=== PATIENT | male | born 1965 | race Caucasian/White ===

== ENCOUNTER 2023-07-10 22:25 | Inpatient (IN) | payer OTHER ==
[~2023-07-10] VITALS: Ht 162.6 cm; Wt 78.0 kg
[2023-07-10] MEDS ORDERED: IPRATROPIUM BROMIDE (0.02%) 0.5MG/2.5ML NEB HHN STA (22:32)
[2023-07-10] MEDS ORDERED: METHYLPREDNISOLONE SOD SUCC 125MG/2ML (ACT-O-VIAL) IV STA (22:32)
[2023-07-10] MEDS ORDERED: ALBUTEROL (0.083%) 2.5MG/3ML NEB HHN STA (22:32)
[2023-07-10] MEDS ORDERED: SODIUM CHLORIDE 0.9% 1,000 ML IV ONE (22:45)
[2023-07-10 22:49] LABS: BASOPHILS % 0.6 % (0.0-2.0); EOSINOPHILS % 0.9 % (0.0-5.0); HEMATOCRIT. 40.1 % (42.0-52.0); HEMOGLOBIN. 12.7 g/dL (14.0-18.0); LYMPHOCYTES % 7.1 % (20.0-50.0); MEAN CORPUSCULAR HEMOGLOBIN 26.2 pg (28.0-32.0); MEAN CORPUSCULAR HGB CONC 31.8 g/dL (31.0-37.0); MEAN CORPUSCULAR VOLUME 82.6 fL (80.0-94.0); MEAN PLATELET VOLUME 8.2 fl (7.4-10.4); MONOCYTES % 8.7 % (2.0-8.0); NEUTROPHILS % 82.7 % (40.0-76.0); PLATELET 219 x1000/uL (130-400); RED BLOOD CELL COUNT 4.85 mill/uL (4.7-6.1); RED CELL DISTRIBUTION WIDTH 14.6 % (11.6-14.6); WHITE BLOOD COUNT 14.5 x1000/uL (4.5-11.0)
[2023-07-10 22:55] LABS: PROTHROMBIN TIME 10.9 sec (9.6-11.0)
[2023-07-10 23:02] LABS: ALANINE AMINOTRANSFERASE 36 IU/L (10-49); ALBUMIN 4.2 g/dL (3.2-4.8); ASPARTATE AMINOTRANSFERASE 69 IU/L (<34); BILIRUBIN TOTAL 0.9 mg/dL (0.1-1.0); CALCIUM 8.7 mg/dL (8.7-10.4); CARBON DIOXIDE 16 mEq/L (21-32); CHLORIDE 107 mEq/L (98-107); CREATININE 1.3 mg/dL (0.6-1.3); GLUCOSE 138 mg/dL (70-105); POTASSIUM 4.2 mEq/L (3.5-5.1); PROTEIN TOTAL 7.4 g/dL (6.0-8.3); SODIUM 138 mEq/L (136-145); TROPONIN I HIGH SENSITIVITY 25 ng/L (3.0-53); UREA NITROGEN BLOOD 28 mg/dL (9-23)
[2023-07-10 23:07] LABS: ETHANOL BLOOD < 10 mg/dL (<10); LACTIC ACID 2.4 mmol/L (0.4-2.0)
[2023-07-10 23:58] VITALS: RESP 28
[2023-07-11 00:07] LABS: BG BASE EXCESS -2.5 mmol/L (-2.0-2.0); BG CARBOXYHEMOGLOBIN 0.4 % (0.5-1.5); BG DEOXYHEMOGLOBIN 1.3 % (0.0-5.0); BG FRACTION INSPIRED OXYGEN 50; BG HCO3 ACT 20.3 mmol/L (22.0-26.0); BG METHEMOGLOBIN 0.3 % (0.0-1.5); BG OXYGEN SATURATION 98.7 % (92.0-98.5); BG PCO2 29.8 mmHg (35.0-45.0); BG PH 7.452 (7.350-7.450); BG PO2 158.9 mmHg (75.0-100.0); BG SAMPLE SITE LEFT RADIAL; BG TOTAL HEMOGLOBIN 13.5 g/dL (12.0-18.0); BG VENT MODE MASK - BIPAP
[2023-07-11] MEDS ORDERED: TAZOBACTAM IV NR (00:30)
[2023-07-11] MEDS ORDERED: VANCOMYCIN 1G PREMIX 200 ML IV NR (00:30)
[2023-07-11] MEDS ORDERED: PIPERACILLIN IV NR (00:30)
[2023-07-11 04:55] VITALS: PULSE 109; RESP 22; O2SAT 96
[2023-07-11] MEDS ORDERED: ALBUTEROL (0.5%) 2.5MG/0.5ML NEB HHN ONE (05:30)
[2023-07-11 08:00] VITALS: RESP 17
[2023-07-11] MEDS ORDERED: CLONIDINE 0.1MG TABLET PO PRN (11:15)
[2023-07-11] MEDS ORDERED: ONDANSETRON HCL 4MG/2ML INJ IV PRN (11:15)
[2023-07-11] MEDS ORDERED: IPRATROPIUM/ALBUTEROL 0.5-3(2.5)MG/3ML NEB HHN PRN (11:15)
[2023-07-11] MEDS ORDERED: MAGNESIUM/ALUMINUM HYDROXIDE/SIMETHICONE 30ML UDC PO PRN (11:15)
[2023-07-11] MEDS ORDERED: CEFTAZIDIME PENTAHYDRATE 2 G in DEXT 5% WATER 100 ML IV SCH (11:30)
[2023-07-11] MEDS ORDERED: AZITHROMYCIN 500MG/250ML 250 ML IV SCH (11:30)
[2023-07-11] MEDS ORDERED: LEVOFLOXACIN 750MG PREMIX 150 ML IV NR (12:45)
[2023-07-11] MEDS ORDERED: NON FORMULARY PATIENT HOME MED XX SCH (17:30)
[2023-07-11] MEDS ORDERED: MYCOPHENOLATE MOFETIL 500MG TABLET PO SCH (18:00)
[2023-07-11 20:00] VITALS: BP 126/76; PULSE 78; RESP 23; TEMP 98.8
[2023-07-11] MEDS: FAMOTIDINE 20MG TABLET PO SCH (20:49)
[2023-07-11] MEDS ORDERED: NON FORMULARY PATIENT HOME MED XX PRN (22:00)
[2023-07-11] MEDS: IPRATROPIUM/ALBUTEROL 0.5-3(2.5)MG/3ML NEB HHN SCH (22:06)
[2023-07-11] MEDS: BUDESONIDE 0.5MG/2ML NEB HHN SCH (22:06)
[2023-07-11 22:07] VITALS: PULSE 89; RESP 24; O2SAT 96
[2023-07-11] MEDS: PREDNISONE 5MG TABLET PO SCH (22:08)
[2023-07-11] MEDS: GUAIFENESIN 200MG/10ML SUGAR FREE UDC PO PRN (22:10)
[2023-07-11] MEDS: MELATONIN 3MG TABLET PO PRN (22:15)
[2023-07-11 23:20] VITALS: BP 126/76; PULSE 78; RESP 23; TEMP 98.8
[2023-07-12] VITALS (11 sets, daily range): BP systolic 105–135; BP diastolic 61–82; PULSE 76–114; RESP 25–51; TEMP 97.4–98.5; O2SAT 86
[2023-07-12] MEDS: ACETYLCYSTEINE 200MG/ML 20% VIAL 4ML INH SCH ×3 (01:51→13:30)
[2023-07-12] MEDS: IPRATROPIUM/ALBUTEROL 0.5-3(2.5)MG/3ML NEB HHN SCH ×4 (01:51→20:28)
[2023-07-12] MEDS: GUAIFENESIN 200MG/10ML SUGAR FREE UDC PO PRN (04:59)
[2023-07-12 07:40] LABS: ALANINE AMINOTRANSFERASE 34 IU/L (10-49); ALBUMIN 3.8 g/dL (3.2-4.8); ASPARTATE AMINOTRANSFERASE 39 IU/L (<34); BILIRUBIN TOTAL 0.5 mg/dL (0.1-1.0); CALCIUM 8.7 mg/dL (8.7-10.4); CARBON DIOXIDE 20 mEq/L (21-32); CHLORIDE 106 mEq/L (98-107); CHOLESTEROL 173 mg/dL (<200); CREATININE 0.9 mg/dL (0.6-1.3); GLUCOSE 121 mg/dL (70-105); HDL CHOLESTEROL 47 mg/dL (>55); LDL CHOLESTEROL 101 mg/dL (5-100); POTASSIUM 4.5 mEq/L (3.5-5.1); PROTEIN TOTAL 6.7 g/dL (6.0-8.3); SODIUM 136 mEq/L (136-145); T4 FREE 1.19 ng/dL (0.89-1.76); THYROID STIMULATING HORMONE 1.36 uIU/mL (0.55-4.78); TRIGLYCERIDE 105 mg/dL (0-150); UREA NITROGEN BLOOD 22 mg/dL (9-23)
[2023-07-12 08:15] LABS: HEPATITIS B SURFACE ANTIGEN NEGATIVE (Negative); HEPATITIS C AB NON REACTIVE (Neg) (Negative)
[2023-07-12 08:32] LABS: BASOPHILS % 0.1 % (0.0-2.0); EOSINOPHILS % 0.1 % (0.0-5.0); HEMATOCRIT. 36.8 % (42.0-52.0); HEMOGLOBIN. 12.1 g/dL (14.0-18.0); LYMPHOCYTES % 7.4 % (20.0-50.0); MEAN CORPUSCULAR HEMOGLOBIN 26.7 pg (28.0-32.0); MEAN CORPUSCULAR HGB CONC 32.8 g/dL (31.0-37.0); MEAN CORPUSCULAR VOLUME 81.3 fL (80.0-94.0); MEAN PLATELET VOLUME 8.7 fl (7.4-10.4); MONOCYTES % 8.2 % (2.0-8.0); NEUTROPHILS % 84.2 % (40.0-76.0); PLATELET 190 x1000/uL (130-400); RED BLOOD CELL COUNT 4.53 mill/uL (4.7-6.1); RED CELL DISTRIBUTION WIDTH 14.5 % (11.6-14.6); WHITE BLOOD COUNT 12.7 x1000/uL (4.5-11.0)
[2023-07-12] MEDS: PREDNISONE 5MG TABLET PO SCH (09:09)
[2023-07-12] MEDS: BUDESONIDE 0.5MG/2ML NEB HHN SCH ×2 (09:40→20:28)
[2023-07-12 09:56] LABS: CLARITY URINE CLEAR (CLEAR); COLOR URINE YELLOW (YELLOW); GLUCOSE URINE NEGATIVE (NEGATIVE); KETONES URINE NEGATIVE (NEGATIVE); LEUKOCYTE ESTERASE URINE NEGATIVE (NEGATIVE); NITRITE URINE NEGATIVE (NEGATIVE); OCCULT BLOOD URINE NEGATIVE (NEGATIVE); PH URINE 5.5 (4.5-8.0); PROTEIN URINE TRACE (NEGATIVE); SPECIFIC GRAVITY URINE 1.024 (1.005-1.030); UROBILINOGEN URINE 0.2 E.U./dL (0.2-1.0)
[2023-07-12] MEDS ORDERED: METHYLPREDNISOLONE SOD SUCC 40MG/ML (ACT-O-VIAL) IV SCH ×2 (10:30→14:00)
[2023-07-12 11:36] LABS: BG CARBOXYHEMOGLOBIN 0.8 % (0.5-1.5); BG DEOXYHEMOGLOBIN 10.1 % (0.0-5.0); BG FRACTION INSPIRED OXYGEN 100; BG METHEMOGLOBIN 0.3 % (0.0-1.5); BG OXYGEN SATURATION 89.8 % (92.0-98.5); BG OXYHEMOGLOBIN 88.8 % (94.0-97.0); BG PCO2 31.9 mmHg (35.0-45.0); BG PH 7.457 (7.350-7.450); BG PO2 55.6 mmHg (75.0-100.0); BG SAMPLE SITE LEFT BRACHIAL; BG TOTAL HEMOGLOBIN 13.6 g/dL (12.0-18.0); BG VENT MODE HIGH FLOW
[2023-07-12 11:55] LABS: HYALINE CASTS URINE 0-5 /lpf; MUCUS URINE 1+ /lpf (NONE/TRACE); SQUAMOUS EPITHELIAL CELL URINE FEW /lpf (RARE/1+)
[2023-07-12 11:56] LABS: BACTERIA URINE NONE SEEN; RBC URINE NONE SEEN /hpf (0-2); WBC URINE 0-2 /hpf (0-2)
[2023-07-12] MEDS ORDERED: VANCOMYCIN 1G PREMIX 200 ML IV SCH ×2 (13:00→22:00)
[2023-07-12] MEDS: PIPERACILLIN/TAZOBACTAM 3.375 G in DEXTROSE 5% WATER 50 ML IV SCH ×2 (13:00→22:48)
[2023-07-12 13:20] LABS: *AMPHETAMINES SCREEN URINE NEGATIVE (NEGATIVE); *BARBITURATES SCREEN URINE NEGATIVE (NEGATIVE); *BENZODIAZEPINES SCREEN URINE NEGATIVE (NEGATIVE); *COCAINE SCREEN URINE NEGATIVE (NEGATIVE); ECSTASY MDMA SCREEN URINE NEGATIVE (NEGATIVE); METHADONE URINE SCREEN Neg (NEGATIVE); OPIATES URINE SCREEN NEGATIVE (NEGATIVE); PHENCYCLIDINE URINE SCREEN NEGATIVE (NEGATIVE)
[2023-07-12] MEDS: MELATONIN 3MG TABLET PO PRN (16:42)
[2023-07-12] MEDS: ENOXAPARIN 40MG/0.4ML SYR SUBCUT SCH (16:42)
[2023-07-12 17:09] LABS: BG BASE EXCESS -3.2 mmol/L (-2.0-2.0); BG CARBOXYHEMOGLOBIN 0.6 % (0.5-1.5); BG DEOXYHEMOGLOBIN 0.6 % (0.0-5.0); BG HCO3 ACT 20.3 mmol/L (22.0-26.0); BG METHEMOGLOBIN 0.4 % (0.0-1.5); BG OXYGEN SATURATION 99.4 % (92.0-98.5); BG OXYHEMOGLOBIN 98.4 % (94.0-97.0); BG PCO2 32.2 mmHg (35.0-45.0); BG PH 7.418 (7.350-7.450); BG PO2 194.2 mmHg (75.0-100.0); BG SAMPLE SITE RIGHT RADIAL; BG TOTAL HEMOGLOBIN 13.6 g/dL (12.0-18.0); BG VENT MODE MASK - BIPAP
[2023-07-12] MEDS ORDERED: FUROSEMIDE 20MG/2ML VIAL IVP NR (18:15)
[2023-07-12] MEDS: METHYLPREDNISOLONE SOD SUCC 125MG/2ML (ACT-O-VIAL) IV SCH (18:45)
[2023-07-12 18:52] LABS: TROPONIN I HIGH SENSITIVITY 20 ng/L (3.0-53)
[2023-07-12] MEDS: FAMOTIDINE 20MG TABLET PO SCH (22:03)
[2023-07-13] VITALS (15 sets, daily range): BP systolic 116–148; BP diastolic 73–119; PULSE 48–93; RESP 22–42; TEMP 97.2–98.2; O2SAT 99
[2023-07-13] MEDS: ACETYLCYSTEINE 200MG/ML 20% VIAL 4ML INH SCH ×3 (01:11→14:15)
[2023-07-13] MEDS: IPRATROPIUM/ALBUTEROL 0.5-3(2.5)MG/3ML NEB HHN SCH ×4 (01:11→20:43)
[2023-07-13] MEDS: METHYLPREDNISOLONE SOD SUCC 125MG/2ML (ACT-O-VIAL) IV SCH ×5 (01:27→23:23)
[2023-07-13] MEDS: PIPERACILLIN/TAZOBACTAM 3.375 G in DEXTROSE 5% WATER 50 ML IV SCH ×3 (06:18→21:53)
[2023-07-13 07:25] LABS: BASOPHILS % 0.1 % (0.0-2.0); HEMATOCRIT. 37.2 % (42.0-52.0); HEMOGLOBIN. 12.2 g/dL (14.0-18.0); LYMPHOCYTES % 7.7 % (20.0-50.0); MEAN CORPUSCULAR HEMOGLOBIN 26.6 pg (28.0-32.0); MEAN CORPUSCULAR HGB CONC 32.7 g/dL (31.0-37.0); MEAN CORPUSCULAR VOLUME 81.2 fL (80.0-94.0); MEAN PLATELET VOLUME 8.4 fl (7.4-10.4); MONOCYTES % 4.8 % (2.0-8.0); NEUTROPHILS % 87.4 % (40.0-76.0); PLATELET 203 x1000/uL (130-400); RED BLOOD CELL COUNT 4.57 mill/uL (4.7-6.1); RED CELL DISTRIBUTION WIDTH 14.1 % (11.6-14.6); WHITE BLOOD COUNT 9.1 x1000/uL (4.5-11.0)
[2023-07-13 08:08] LABS: CALCIUM 9.1 mg/dL (8.7-10.4); CARBON DIOXIDE 25 mEq/L (21-32); CHLORIDE 103 mEq/L (98-107); CREATININE 1.1 mg/dL (0.6-1.3); GLUCOSE 174 mg/dL (70-105); POTASSIUM 4.4 mEq/L (3.5-5.1); SODIUM 137 mEq/L (136-145); UREA NITROGEN BLOOD 27 mg/dL (9-23)
[2023-07-13] MEDS: BUDESONIDE 0.5MG/2ML NEB HHN SCH ×2 (08:15→20:44)
[2023-07-13 10:55] LABS: BG BASE EXCESS -0.1 mmol/L (-2.0-2.0); BG CARBOXYHEMOGLOBIN 0.1 % (0.5-1.5); BG DEOXYHEMOGLOBIN 0.7 % (0.0-5.0); BG FRACTION INSPIRED OXYGEN 100; BG HCO3 ACT 23.9 mmol/L (22.0-26.0); BG METHEMOGLOBIN 0.3 % (0.0-1.5); BG OXYGEN SATURATION 99.3 % (92.0-98.5); BG OXYHEMOGLOBIN 98.9 % (94.0-97.0); BG PCO2 36.9 mmHg (35.0-45.0); BG PO2 214.2 mmHg (75.0-100.0); BG SAMPLE SITE RIGHT RADIAL; BG TOTAL HEMOGLOBIN 13.1 g/dL (12.0-18.0); BG VENT MODE MASK - BIPAP
[2023-07-13] MEDS: VANCOMYCIN 1G PREMIX 200 ML IV SCH ×2 (12:12→20:29)
[2023-07-13] MEDS: ENOXAPARIN 40MG/0.4ML SYR SUBCUT SCH (17:24)
[2023-07-13] MEDS ORDERED: DEXT 5%/0.45% NACL 500ML 500 ML IV ONE (18:00)
[2023-07-13] MEDS: FAMOTIDINE 20MG TABLET PO SCH (20:32)
[2023-07-14] VITALS (19 sets, daily range): BP systolic 106–137; BP diastolic 66–95; PULSE 47–114; RESP 23–40; TEMP 97–97.9
[2023-07-14] MEDS: IPRATROPIUM/ALBUTEROL 0.5-3(2.5)MG/3ML NEB HHN SCH ×4 (01:18→21:18)
[2023-07-14] MEDS: ACETYLCYSTEINE 200MG/ML 20% VIAL 4ML INH SCH ×3 (01:18→14:49)
[2023-07-14] MEDS: PIPERACILLIN/TAZOBACTAM 3.375 G in DEXTROSE 5% WATER 50 ML IV SCH ×3 (05:09→20:45)
[2023-07-14] MEDS: METHYLPREDNISOLONE SOD SUCC 125MG/2ML (ACT-O-VIAL) IV SCH ×3 (05:11→17:53)
[2023-07-14 05:48] LABS: HEMATOCRIT. 38.7 % (42.0-52.0); HEMOGLOBIN. 12.6 g/dL (14.0-18.0); MEAN CORPUSCULAR HEMOGLOBIN 26.6 pg (28.0-32.0); MEAN CORPUSCULAR HGB CONC 32.5 g/dL (31.0-37.0); MEAN PLATELET VOLUME 8.6 fl (7.4-10.4); PLATELET 209 x1000/uL (130-400); RED BLOOD CELL COUNT 4.73 mill/uL (4.7-6.1); RED CELL DISTRIBUTION WIDTH 14.6 % (11.6-14.6); WHITE BLOOD COUNT 12.8 x1000/uL (4.5-11.0)
[2023-07-14 06:32] LABS: CARBON DIOXIDE 21 mEq/L (21-32); CHLORIDE 105 mEq/L (98-107); GLUCOSE 153 mg/dL (70-105); POTASSIUM 5.1 mEq/L (3.5-5.1); SODIUM 135 mEq/L (136-145); UREA NITROGEN BLOOD 29 mg/dL (9-23)
[2023-07-14 06:54] LABS: DIFFERENTIAL COMMENT 1
[2023-07-14] MEDS: BUDESONIDE 0.5MG/2ML NEB HHN SCH ×2 (08:33→20:44)
[2023-07-14] MEDS: DEXT 5%/0.9% NACL 1,000 ML IV SCH ×2 (09:54→22:39)
[2023-07-14] MEDS: VANCOMYCIN 1G PREMIX 200 ML IV SCH ×2 (09:58→20:44)
[2023-07-14] MEDS ORDERED: IOHEXOL-350 100 ML BOTTLE ONE (14:43)
[2023-07-14 17:47] LABS: BG BASE EXCESS -1.2 mmol/L (-2.0-2.0); BG CARBOXYHEMOGLOBIN 0.1 % (0.5-1.5); BG DEOXYHEMOGLOBIN 3.8 % (0.0-5.0); BG FRACTION INSPIRED OXYGEN 60; BG HCO3 ACT 22.8 mmol/L (22.0-26.0); BG METHEMOGLOBIN 0.3 % (0.0-1.5); BG OXYGEN SATURATION 96.2 % (92.0-98.5); BG OXYHEMOGLOBIN 95.8 % (94.0-97.0); BG PCO2 35.9 mmHg (35.0-45.0); BG PO2 85.8 mmHg (75.0-100.0); BG SAMPLE SITE RIGHT BRACHIAL; BG TOTAL HEMOGLOBIN 13.8 g/dL (12.0-18.0); BG TOTAL RESPIRATORY RATE 26 b/min; BG VENT MODE MASK - BIPAP
[2023-07-14] MEDS: ENOXAPARIN 40MG/0.4ML SYR SUBCUT SCH (17:54)
[2023-07-14] MEDS: FAMOTIDINE 20MG TABLET PO SCH (20:45)
[2023-07-15] VITALS (17 sets, daily range): BP systolic 122–151; BP diastolic 77–87; PULSE 50–74; RESP 16–38; TEMP 97.1–98.2
[2023-07-15] MEDS: IPRATROPIUM/ALBUTEROL 0.5-3(2.5)MG/3ML NEB HHN SCH ×4 (00:04→15:50)
[2023-07-15] MEDS: ACETYLCYSTEINE 200MG/ML 20% VIAL 4ML INH SCH ×3 (01:18→15:50)
[2023-07-15] MEDS: METHYLPREDNISOLONE SOD SUCC 125MG/2ML (ACT-O-VIAL) IV SCH ×4 (01:39→18:43)
[2023-07-15] MEDS: PIPERACILLIN/TAZOBACTAM 3.375 G in DEXTROSE 5% WATER 50 ML IV SCH ×3 (05:27→21:39)
[2023-07-15 07:35] LABS: HEMATOCRIT. 38.1 % (42.0-52.0); HEMOGLOBIN. 12.3 g/dL (14.0-18.0); MEAN CORPUSCULAR HEMOGLOBIN 26.3 pg (28.0-32.0); MEAN CORPUSCULAR HGB CONC 32.3 g/dL (31.0-37.0); MEAN CORPUSCULAR VOLUME 81.4 fL (80.0-94.0); MEAN PLATELET VOLUME 8.7 fl (7.4-10.4); PLATELET 234 x1000/uL (130-400); RED BLOOD CELL COUNT 4.68 mill/uL (4.7-6.1); RED CELL DISTRIBUTION WIDTH 13.9 % (11.6-14.6); WHITE BLOOD COUNT 11.6 x1000/uL (4.5-11.0)
[2023-07-15 07:59] LABS: CALCIUM 8.7 mg/dL (8.7-10.4); CARBON DIOXIDE 26 mEq/L (21-32); CHLORIDE 104 mEq/L (98-107); GLUCOSE 160 mg/dL (70-105); POTASSIUM 4.5 mEq/L (3.5-5.1); SODIUM 140 mEq/L (136-145); UREA NITROGEN BLOOD 27 mg/dL (9-23)
[2023-07-15 08:28] LABS: DIFFERENTIAL COMMENT 1
[2023-07-15] MEDS: BUDESONIDE 0.5MG/2ML NEB HHN SCH (08:30)
[2023-07-15] MEDS: VANCOMYCIN 1G PREMIX 200 ML IV SCH ×2 (09:00→21:38)
[2023-07-15 09:27] LABS: BG BASE EXCESS 1.9 mmol/L (-2.0-2.0); BG CARBOXYHEMOGLOBIN 0.5 % (0.5-1.5); BG FRACTION INSPIRED OXYGEN 60; BG HCO3 ACT 27.1 mmol/L (22.0-26.0); BG METHEMOGLOBIN 0.3 % (0.0-1.5); BG OXYHEMOGLOBIN 96.2 % (94.0-97.0); BG PCO2 44.8 mmHg (35.0-45.0); BG PO2 96.8 mmHg (75.0-100.0); BG SAMPLE SITE RIGHT BRACHIAL; BG TOTAL HEMOGLOBIN 13.4 g/dL (12.0-18.0); BG TOTAL RESPIRATORY RATE 29 b/min; BG VENT MODE MASK - BIPAP
[2023-07-15 11:58] LABS: BG BASE EXCESS 3.2 mmol/L (-2.0-2.0); BG CARBOXYHEMOGLOBIN 0.3 % (0.5-1.5); BG DEOXYHEMOGLOBIN 8.6 % (0.0-5.0); BG FRACTION INSPIRED OXYGEN 100; BG HCO3 ACT 27.4 mmol/L (22.0-26.0); BG METHEMOGLOBIN 0.1 % (0.0-1.5); BG OXYGEN SATURATION 91.4 % (92.0-98.5); BG PCO2 40.3 mmHg (35.0-45.0); BG PO2 62.9 mmHg (75.0-100.0); BG SAMPLE SITE RIGHT RADIAL; BG TOTAL HEMOGLOBIN 13.4 g/dL (12.0-18.0); BG VENT MODE HIGH FLOW
[2023-07-15] MEDS: LEVOFLOXACIN 500MG TABLET PO SCH (16:00)
[2023-07-15] MEDS: ENOXAPARIN 40MG/0.4ML SYR SUBCUT SCH (18:43)
[2023-07-15] MEDS: FAMOTIDINE 20MG TABLET PO SCH (21:38)
[2023-07-16] VITALS (18 sets, daily range): BP systolic 111–150; BP diastolic 59–103; PULSE 55–99; RESP 13–39; TEMP 97.6–98.7; O2SAT 92–93
[2023-07-16] MEDS: BUDESONIDE 0.5MG/2ML NEB HHN SCH ×2 (00:04→12:04)
[2023-07-16] MEDS: ACETYLCYSTEINE 200MG/ML 20% VIAL 4ML INH SCH (00:04)
[2023-07-16] MEDS: IPRATROPIUM/ALBUTEROL 0.5-3(2.5)MG/3ML NEB HHN SCH ×3 (00:04→17:38)
[2023-07-16] MEDS: METHYLPREDNISOLONE SOD SUCC 125MG/2ML (ACT-O-VIAL) IV SCH ×3 (00:26→11:19)
[2023-07-16 01:09] LABS: PLATELET ESTIMATE NORMAL
[2023-07-16 05:34] LABS: PLATELET ESTIMATE NORMAL
[2023-07-16] MEDS: PIPERACILLIN/TAZOBACTAM 3.375 G in DEXTROSE 5% WATER 50 ML IV SCH ×3 (06:42→21:21)
[2023-07-16] MEDS: VANCOMYCIN 1G PREMIX 200 ML IV SCH ×2 (09:00→21:19)
[2023-07-16 09:50] LABS: CALCIUM 8.6 mg/dL (8.7-10.4); CARBON DIOXIDE 24 mEq/L (21-32); CHLORIDE 105 mEq/L (98-107); CREATININE 0.8 mg/dL (0.6-1.3); GLUCOSE 135 mg/dL (70-105); POTASSIUM 4.5 mEq/L (3.5-5.1); SODIUM 137 mEq/L (136-145); UREA NITROGEN BLOOD 28 mg/dL (9-23)
[2023-07-16 09:54] LABS: HEMATOCRIT. 40.4 % (42.0-52.0); HEMOGLOBIN. 12.9 g/dL (14.0-18.0); MEAN CORPUSCULAR HEMOGLOBIN 26.5 pg (28.0-32.0); MEAN CORPUSCULAR VOLUME 82.8 fL (80.0-94.0); MEAN PLATELET VOLUME 8.6 fl (7.4-10.4); PLATELET 252 x1000/uL (130-400); RED BLOOD CELL COUNT 4.88 mill/uL (4.7-6.1); RED CELL DISTRIBUTION WIDTH 13.8 % (11.6-14.6)
[2023-07-16 10:30] LABS: DIFFERENTIAL COMMENT 1
[2023-07-16] MEDS: LEVOFLOXACIN 500MG TABLET PO SCH (16:54)
[2023-07-16] MEDS: ENOXAPARIN 40MG/0.4ML SYR SUBCUT SCH (16:54)
[2023-07-16 17:05] LABS: PLATELET ESTIMATE NORMAL
[2023-07-16 18:16] LABS: BG BASE EXCESS 1.2 mmol/L (-2.0-2.0); BG CARBOXYHEMOGLOBIN 0.6 % (0.5-1.5); BG DEOXYHEMOGLOBIN 16.6 % (0.0-5.0); BG FRACTION INSPIRED OXYGEN 52; BG HCO3 ACT 24.8 mmol/L (22.0-26.0); BG METHEMOGLOBIN 0.3 % (0.0-1.5); BG OXYGEN SATURATION 83.2 % (92.0-98.5); BG OXYHEMOGLOBIN 82.5 % (94.0-97.0); BG PH 7.456 (7.350-7.450); BG PO2 49.3 mmHg (75.0-100.0); BG SAMPLE SITE RIGHT RADIAL; BG TOTAL HEMOGLOBIN 13.9 g/dL (12.0-18.0); BG VENT MODE NASAL CANNULA
[2023-07-16] MEDS: METHYLPREDNISOLONE SOD SUCC 40MG/ML (ACT-O-VIAL) IV SCH (21:19)
[2023-07-16] MEDS: FAMOTIDINE 20MG TABLET PO SCH (21:19)
[2023-07-17] VITALS (19 sets, daily range): BP systolic 98–135; BP diastolic 69–108; PULSE 57–90; RESP 23–39; TEMP 97.6–98.2
[2023-07-17] MEDS: PIPERACILLIN/TAZOBACTAM 3.375 G in DEXTROSE 5% WATER 50 ML IV SCH (06:11)
[2023-07-17] MEDS: METHYLPREDNISOLONE SOD SUCC 40MG/ML (ACT-O-VIAL) IV SCH ×2 (06:11→16:21)
[2023-07-17 08:09] LABS: HEMATOCRIT. 40.3 % (42.0-52.0); HEMOGLOBIN. 12.9 g/dL (14.0-18.0); MEAN CORPUSCULAR HEMOGLOBIN 26.2 pg (28.0-32.0); MEAN CORPUSCULAR HGB CONC 31.9 g/dL (31.0-37.0); MEAN CORPUSCULAR VOLUME 82.3 fL (80.0-94.0); MEAN PLATELET VOLUME 8.4 fl (7.4-10.4); PLATELET 252 x1000/uL (130-400); RED CELL DISTRIBUTION WIDTH 14.2 % (11.6-14.6); WHITE BLOOD COUNT 11.8 x1000/uL (4.5-11.0)
[2023-07-17 08:16] LABS: DIFFERENTIAL COMMENT 1
[2023-07-17 09:22] LABS: CALCIUM 8.8 mg/dL (8.7-10.4); CARBON DIOXIDE 25 mEq/L (21-32); CHLORIDE 101 mEq/L (98-107); GLUCOSE 118 mg/dL (70-105); POTASSIUM 4.4 mEq/L (3.5-5.1); SODIUM 137 mEq/L (136-145); UREA NITROGEN BLOOD 27 mg/dL (9-23)
[2023-07-17] MEDS: VANCOMYCIN 1G PREMIX 200 ML IV SCH ×2 (10:01→21:48)
[2023-07-17 10:11] LABS: QFT MITOGEN VALUE 0.18 IU/mL (.); QFT TB GOLD PLUS Indeterminate (Negative)
[2023-07-17 10:12] LABS: BG BASE EXCESS -0.3 mmol/L (-2.0-2.0); BG CARBOXYHEMOGLOBIN 0.3 % (0.5-1.5); BG DEOXYHEMOGLOBIN 11.9 % (0.0-5.0); BG FRACTION INSPIRED OXYGEN 80; BG HCO3 ACT 23.4 mmol/L (22.0-26.0); BG METHEMOGLOBIN 0.3 % (0.0-1.5); BG OXYHEMOGLOBIN 87.5 % (94.0-97.0); BG PCO2 35.5 mmHg (35.0-45.0); BG PH 7.437 (7.350-7.450); BG PO2 55.6 mmHg (75.0-100.0); BG SAMPLE SITE RIGHT RADIAL; BG TOTAL HEMOGLOBIN 13.4 g/dL (12.0-18.0); BG VENT MODE HIGH FLOW
[2023-07-17] MEDS: LEVOFLOXACIN 500MG TABLET PO SCH (16:20)
[2023-07-17] MEDS: FAMOTIDINE 20MG TABLET PO SCH (21:48)
[2023-07-18] VITALS (16 sets, daily range): BP systolic 97–152; BP diastolic 50–118; PULSE 47–94; RESP 12–33; TEMP 97.2–97.7
[2023-07-18] MEDS: MELATONIN 3MG TABLET PO PRN ×2 (00:27→21:42)
[2023-07-18] MEDS: METHYLPREDNISOLONE SOD SUCC 125MG/2ML (ACT-O-VIAL) IV SCH ×4 (00:28→17:21)
[2023-07-18 05:32] LABS: HEMATOCRIT. 38.5 % (42.0-52.0); HEMOGLOBIN. 12.4 g/dL (14.0-18.0); MEAN CORPUSCULAR HEMOGLOBIN 26.1 pg (28.0-32.0); MEAN CORPUSCULAR HGB CONC 32.2 g/dL (31.0-37.0); MEAN CORPUSCULAR VOLUME 81.1 fL (80.0-94.0); MEAN PLATELET VOLUME 8.5 fl (7.4-10.4); PLATELET 239 x1000/uL (130-400); RED BLOOD CELL COUNT 4.74 mill/uL (4.7-6.1); RED CELL DISTRIBUTION WIDTH 13.8 % (11.6-14.6)
[2023-07-18 05:44] LABS: CALCIUM 8.5 mg/dL (8.7-10.4); CARBON DIOXIDE 24 mEq/L (21-32); CHLORIDE 100 mEq/L (98-107); CREATININE 0.9 mg/dL (0.6-1.3); GLUCOSE 146 mg/dL (70-105); POTASSIUM 4.6 mEq/L (3.5-5.1); SODIUM 133 mEq/L (136-145); UREA NITROGEN BLOOD 27 mg/dL (9-23)
[2023-07-18 05:45] LABS: DIFFERENTIAL COMMENT 1
[2023-07-18 08:27] LABS: BG BASE EXCESS 0.3 mmol/L (-2.0-2.0); BG CARBOXYHEMOGLOBIN 0.2 % (0.5-1.5); BG DEOXYHEMOGLOBIN 3.3 % (0.0-5.0); BG FRACTION INSPIRED OXYGEN 60; BG HCO3 ACT 23.9 mmol/L (22.0-26.0); BG METHEMOGLOBIN 0.3 % (0.0-1.5); BG OXYGEN SATURATION 96.7 % (92.0-98.5); BG OXYHEMOGLOBIN 96.2 % (94.0-97.0); BG PCO2 35.2 mmHg (35.0-45.0); BG PH 7.449 (7.350-7.450); BG PO2 89.9 mmHg (75.0-100.0); BG SAMPLE SITE RIGHT RADIAL; BG TOTAL HEMOGLOBIN 13.6 g/dL (12.0-18.0); BG VENT MODE HIGH FLOW
[2023-07-18] MEDS: GUAIFENESIN 200MG/10ML SUGAR FREE UDC PO PRN ×2 (11:25→21:42)
[2023-07-18 14:05] LABS: PLATELET ESTIMATE NORMAL
[2023-07-18 14:57] LABS: PLATELET ESTIMATE NORMAL
[2023-07-18] MEDS: ENOXAPARIN 40MG/0.4ML SYR SUBCUT SCH ×2 (16:31→16:32)
[2023-07-18] MEDS: LEVOFLOXACIN 500MG TABLET PO SCH (16:31)
[2023-07-18] MEDS ORDERED: POLYVINYL ALCOHOL OPHTH DROPS 15ML BOTHEYE PRN (19:00)
[2023-07-18] MEDS: FAMOTIDINE 20MG TABLET PO SCH (21:41)
[2023-07-19] VITALS (13 sets, daily range): BP systolic 104–150; BP diastolic 51–94; PULSE 50–91; RESP 15–32; TEMP 97–98.1
[2023-07-19] MEDS: METHYLPREDNISOLONE SOD SUCC 125MG/2ML (ACT-O-VIAL) IV SCH ×4 (00:21→17:46)
[2023-07-19] MEDS: LEVOFLOXACIN 250MG TABLET PO SCH (11:29)
[2023-07-19] MEDS: ENOXAPARIN 40MG/0.4ML SYR SUBCUT SCH (17:45)
[2023-07-19] MEDS ORDERED: IPRATROPIUM/ALBUTEROL 0.5-3(2.5)MG/3ML NEB HHN PRN (18:45)
[2023-07-19] MEDS: FAMOTIDINE 20MG TABLET PO SCH (21:00)
[2023-07-19] MEDS: GUAIFENESIN 200MG/10ML SUGAR FREE UDC PO PRN (22:23)
[2023-07-19] MEDS: MELATONIN 3MG TABLET PO PRN (22:23)
[2023-07-20] VITALS (20 sets, daily range): BP systolic 102–145; BP diastolic 63–82; PULSE 48–92; RESP 20–47; TEMP 97–98.1; O2SAT 97–98
[2023-07-20] MEDS: METHYLPREDNISOLONE SOD SUCC 125MG/2ML (ACT-O-VIAL) IV SCH ×4 (00:36→18:53)
[2023-07-20] MEDS: IPRATROPIUM/ALBUTEROL 0.5-3(2.5)MG/3ML NEB HHN SCH ×6 (01:09→20:20)
[2023-07-20] MEDS: BUDESONIDE 0.5MG/2ML NEB HHN SCH ×2 (08:16→20:20)
[2023-07-20] MEDS: GUAIFENESIN 200MG/10ML SUGAR FREE UDC PO PRN (09:37)
[2023-07-20 09:59] LABS: BG BASE EXCESS -1.8 mmol/L (-2.0-2.0); BG CARBOXYHEMOGLOBIN 0.8 % (0.5-1.5); BG DEOXYHEMOGLOBIN 6.9 % (0.0-5.0); BG FRACTION INSPIRED OXYGEN 60; BG HCO3 ACT 22.4 mmol/L (22.0-26.0); BG METHEMOGLOBIN 0.3 % (0.0-1.5); BG PCO2 36.1 mmHg (35.0-45.0); BG PO2 68.8 mmHg (75.0-100.0); BG SAMPLE SITE RIGHT BRACHIAL; BG TOTAL HEMOGLOBIN 13.5 g/dL (12.0-18.0); BG VENT MODE HIGH FLOW
[2023-07-20] MEDS: LEVOFLOXACIN 250MG TABLET PO SCH (10:33)
[2023-07-20] MEDS: ENOXAPARIN 40MG/0.4ML SYR SUBCUT SCH (18:53)
[2023-07-20] MEDS: FAMOTIDINE 20MG TABLET PO SCH (20:50)
[2023-07-21] VITALS (16 sets, daily range): BP systolic 92–135; BP diastolic 52–84; PULSE 52–114; RESP 18–40; TEMP 98–98.6; O2SAT 96–98
[2023-07-21] MEDS: IPRATROPIUM/ALBUTEROL 0.5-3(2.5)MG/3ML NEB HHN SCH ×4 (02:20→20:35)
[2023-07-21] MEDS: BUDESONIDE 0.5MG/2ML NEB HHN SCH (08:24)
[2023-07-21] MEDS ORDERED: GUAIFENESIN-DM 200MG-20MG/10ML UDC PO NR (10:15)
[2023-07-21] MEDS ORDERED: BENZONATATE 100MG CAPSULE PO NR (10:15)
[2023-07-21] MEDS: METHYLPREDNISOLONE SOD SUCC 125MG/2ML (ACT-O-VIAL) IV SCH ×3 (11:55→22:47)
[2023-07-21] MEDS: LEVOFLOXACIN 250MG TABLET PO SCH (11:56)
[2023-07-21] MEDS: ENOXAPARIN 40MG/0.4ML SYR SUBCUT SCH (17:31)
[2023-07-21] MEDS: FAMOTIDINE 20MG TABLET PO SCH (22:46)
[2023-07-21] MEDS: BENZONATATE 100MG CAPSULE PO PRN (22:47)
[2023-07-22] VITALS (19 sets, daily range): BP systolic 120–165; BP diastolic 65–88; PULSE 61–113; RESP 15–39; TEMP 98–98.6; O2SAT 34–99
[2023-07-22] MEDS: IPRATROPIUM/ALBUTEROL 0.5-3(2.5)MG/3ML NEB HHN SCH ×6 (00:21→20:15)
[2023-07-22] MEDS: METHYLPREDNISOLONE SOD SUCC 125MG/2ML (ACT-O-VIAL) IV SCH ×3 (06:53→21:57)
[2023-07-22] MEDS: BENZONATATE 100MG CAPSULE PO PRN (10:49)
[2023-07-22] MEDS: BENZONATATE 100MG CAPSULE PO SCH ×2 (14:11→21:58)
[2023-07-22] MEDS ORDERED: NYSTATIN 100,000 UNITS/ML 5ML UDC SSW SCH (18:00)
[2023-07-22] MEDS: ENOXAPARIN 40MG/0.4ML SYR SUBCUT SCH (18:00)
[2023-07-22] MEDS: NYSTATIN 100,000 UNITS/ML 5ML UDC SSW SCH (18:13)
[2023-07-22] MEDS: FAMOTIDINE 20MG TABLET PO SCH (21:57)
[2023-07-23] VITALS (18 sets, daily range): BP systolic 91–143; BP diastolic 54–91; PULSE 62–108; RESP 13–33; TEMP 97.6–98.6; O2SAT 90–94
[2023-07-23] MEDS: IPRATROPIUM/ALBUTEROL 0.5-3(2.5)MG/3ML NEB HHN SCH ×6 (00:19→21:26)
[2023-07-23] MEDS: METHYLPREDNISOLONE SOD SUCC 125MG/2ML (ACT-O-VIAL) IV SCH ×2 (05:45→13:39)
[2023-07-23] MEDS: BENZONATATE 100MG CAPSULE PO SCH ×3 (05:46→22:18)
[2023-07-23] MEDS: NYSTATIN 100,000 UNITS/ML 5ML UDC SSW SCH ×4 (06:00→17:30)
[2023-07-23 11:28] LABS: BG BASE EXCESS -3.5 mmol/L (-2.0-2.0); BG CARBOXYHEMOGLOBIN 0.1 % (0.5-1.5); BG DEOXYHEMOGLOBIN 10.7 % (0.0-5.0); BG FRACTION INSPIRED OXYGEN 65; BG HCO3 ACT 19.8 mmol/L (22.0-26.0); BG OXYGEN SATURATION 89.3 % (92.0-98.5); BG OXYHEMOGLOBIN 89.2 % (94.0-97.0); BG PH 7.423 (7.350-7.450); BG PO2 58.7 mmHg (75.0-100.0); BG SAMPLE SITE LEFT BRACHIAL; BG TOTAL HEMOGLOBIN 13.6 g/dL (12.0-18.0); BG VENT MODE HIGH FLOW
[2023-07-23] MEDS: ENOXAPARIN 40MG/0.4ML SYR SUBCUT SCH ×2 (17:00→17:26)
[2023-07-23] MEDS ORDERED: BENZONATATE 100MG CAPSULE PO PRN (21:00)
[2023-07-23] MEDS ORDERED: BENZONATATE 100MG CAPSULE PO NR (21:00)
[2023-07-23] MEDS ORDERED: GUAIFENESIN-DM 200MG-20MG/10ML UDC PO NR (21:00)
[2023-07-23] MEDS: BUDESONIDE 0.5MG/2ML NEB HHN SCH (21:26)
[2023-07-23] MEDS: FAMOTIDINE 20MG TABLET PO SCH (21:31)
[2023-07-23] MEDS: METHYLPREDNISOLONE SOD SUCC 40MG/ML (ACT-O-VIAL) IV SCH (22:18)
[2023-07-24] VITALS (16 sets, daily range): BP systolic 115–124; BP diastolic 70–90; PULSE 57–102; RESP 16–43; TEMP 97.3–98.3; O2SAT 95–99
[2023-07-24] MEDS: IPRATROPIUM/ALBUTEROL 0.5-3(2.5)MG/3ML NEB HHN SCH ×6 (00:51→20:29)
[2023-07-24] MEDS: METHYLPREDNISOLONE SOD SUCC 40MG/ML (ACT-O-VIAL) IV SCH ×3 (05:57→21:34)
[2023-07-24] MEDS: NYSTATIN 100,000 UNITS/ML 5ML UDC SSW SCH ×3 (05:58→11:39)
[2023-07-24] MEDS: BENZONATATE 100MG CAPSULE PO SCH ×3 (05:58→21:34)
[2023-07-24 08:49] LABS: BG BASE EXCESS -0.9 mmol/L (-2.0-2.0); BG CARBOXYHEMOGLOBIN 0.8 % (0.5-1.5); BG DEOXYHEMOGLOBIN 10.2 % (0.0-5.0); BG FRACTION INSPIRED OXYGEN 65; BG HCO3 ACT 22.1 mmol/L (22.0-26.0); BG METHEMOGLOBIN 0.2 % (0.0-1.5); BG OXYGEN SATURATION 89.7 % (92.0-98.5); BG OXYHEMOGLOBIN 88.8 % (94.0-97.0); BG PCO2 31.9 mmHg (35.0-45.0); BG PH 7.459 (7.350-7.450); BG PO2 58.8 mmHg (75.0-100.0); BG SAMPLE SITE LEFT BRACHIAL; BG TOTAL HEMOGLOBIN 13.2 g/dL (12.0-18.0); BG VENT MODE HIGH FLOW
[2023-07-24] MEDS: BUDESONIDE 0.5MG/2ML NEB HHN SCH ×2 (08:57→20:29)
[2023-07-24] MEDS ORDERED: BUDESONIDE 0.5MG/2ML NEB HHN SCH (20:15)
[2023-07-24] MEDS: FAMOTIDINE 20MG TABLET PO SCH (21:34)
[2023-07-25] VITALS (15 sets, daily range): BP systolic 109–154; BP diastolic 77–104; PULSE 63–99; RESP 14–41; TEMP 97.8–98.6; O2SAT 93–97
[2023-07-25] MEDS: IPRATROPIUM/ALBUTEROL 0.5-3(2.5)MG/3ML NEB HHN SCH ×3 (00:34→13:44)
[2023-07-25] MEDS: NYSTATIN 100,000 UNITS/ML 5ML UDC SSW SCH ×4 (00:47→17:10)
[2023-07-25] MEDS: BENZONATATE 100MG CAPSULE PO SCH ×3 (05:30→21:42)
[2023-07-25] MEDS: METHYLPREDNISOLONE SOD SUCC 40MG/ML (ACT-O-VIAL) IV SCH ×3 (05:30→21:42)
[2023-07-25 06:55] LABS: HEMOGLOBIN. 12.5 g/dL (14.0-18.0); MEAN CORPUSCULAR HEMOGLOBIN 26.5 pg (28.0-32.0); MEAN CORPUSCULAR HGB CONC 32.9 g/dL (31.0-37.0); MEAN CORPUSCULAR VOLUME 80.5 fL (80.0-94.0); MEAN PLATELET VOLUME 8.3 fl (7.4-10.4); PLATELET 201 x1000/uL (130-400); RED BLOOD CELL COUNT 4.72 mill/uL (4.7-6.1); RED CELL DISTRIBUTION WIDTH 14.4 % (11.6-14.6); WHITE BLOOD COUNT 14.4 x1000/uL (4.5-11.0)
[2023-07-25 07:24] LABS: DIFFERENTIAL COMMENT 1
[2023-07-25 07:29] LABS: CALCIUM 8.1 mg/dL (8.7-10.4); CARBON DIOXIDE 25 mEq/L (21-32); CHLORIDE 101 mEq/L (98-107); CREATININE 0.8 mg/dL (0.6-1.3); GLUCOSE 129 mg/dL (70-105); POTASSIUM 4.8 mEq/L (3.5-5.1); SODIUM 134 mEq/L (136-145); UREA NITROGEN BLOOD 29 mg/dL (9-23)
[2023-07-25] MEDS: BUDESONIDE 0.5MG/2ML NEB HHN SCH (09:27)
[2023-07-25 10:15] LABS: BG BASE EXCESS -0.1 mmol/L (-2.0-2.0); BG CARBOXYHEMOGLOBIN 0.3 % (0.5-1.5); BG DEOXYHEMOGLOBIN 4.9 % (0.0-5.0); BG FRACTION INSPIRED OXYGEN 65; BG HCO3 ACT 23.2 mmol/L (22.0-26.0); BG METHEMOGLOBIN 0.3 % (0.0-1.5); BG OXYGEN SATURATION 95.1 % (92.0-98.5); BG OXYHEMOGLOBIN 94.5 % (94.0-97.0); BG PCO2 33.8 mmHg (35.0-45.0); BG PH 7.455 (7.350-7.450); BG PO2 78.7 mmHg (75.0-100.0); BG SAMPLE SITE RIGHT RADIAL; BG TOTAL HEMOGLOBIN 13.5 g/dL (12.0-18.0); BG VENT MODE HIGH FLOW
[2023-07-25 17:59] LABS: PLATELET ESTIMATE NORMAL
[2023-07-25] MEDS: FAMOTIDINE 20MG TABLET PO SCH (21:42)
[2023-07-26] VITALS (13 sets, daily range): BP systolic 121–147; BP diastolic 78–96; PULSE 60–111; RESP 22–51; TEMP 97.2–98.4; O2SAT 88–95
[2023-07-26] MEDS: NYSTATIN 100,000 UNITS/ML 5ML UDC SSW SCH ×4 (00:58→18:19)
[2023-07-26] MEDS: IPRATROPIUM/ALBUTEROL 0.5-3(2.5)MG/3ML NEB HHN SCH ×4 (04:09→22:13)
[2023-07-26] MEDS: METHYLPREDNISOLONE SOD SUCC 40MG/ML (ACT-O-VIAL) IV SCH ×3 (06:10→21:15)
[2023-07-26] MEDS: BENZONATATE 100MG CAPSULE PO SCH ×3 (06:10→21:15)
[2023-07-26] MEDS: BUDESONIDE 0.5MG/2ML NEB HHN SCH ×2 (09:38→22:10)
[2023-07-26 10:11] LABS: BG BASE EXCESS 0.9 mmol/L (-2.0-2.0); BG CARBOXYHEMOGLOBIN 0.6 % (0.5-1.5); BG DEOXYHEMOGLOBIN 2.7 % (0.0-5.0); BG FRACTION INSPIRED OXYGEN 60; BG HCO3 ACT 23.8 mmol/L (22.0-26.0); BG METHEMOGLOBIN 0.3 % (0.0-1.5); BG OXYGEN SATURATION 97.3 % (92.0-98.5); BG OXYHEMOGLOBIN 96.4 % (94.0-97.0); BG PCO2 32.8 mmHg (35.0-45.0); BG PH 7.479 (7.350-7.450); BG PO2 95.9 mmHg (75.0-100.0); BG SAMPLE SITE RIGHT RADIAL; BG TOTAL HEMOGLOBIN 13.2 g/dL (12.0-18.0); BG VENT MODE HIGH FLOW
[2023-07-26] MEDS: FAMOTIDINE 20MG TABLET PO SCH (21:15)
[2023-07-27] VITALS (17 sets, daily range): BP systolic 121–162; BP diastolic 67–94; PULSE 64–109; RESP 18–51; TEMP 97.2–98.6; O2SAT 88–96
[2023-07-27] MEDS: NYSTATIN 100,000 UNITS/ML 5ML UDC SSW SCH ×5 (00:15→23:52)
[2023-07-27] MEDS: IPRATROPIUM/ALBUTEROL 0.5-3(2.5)MG/3ML NEB HHN SCH ×7 (00:20→23:28)
[2023-07-27] MEDS: BENZONATATE 100MG CAPSULE PO SCH ×3 (05:02→21:55)
[2023-07-27] MEDS: METHYLPREDNISOLONE SOD SUCC 40MG/ML (ACT-O-VIAL) IV SCH ×3 (05:02→21:51)
[2023-07-27] MEDS: BUDESONIDE 0.5MG/2ML NEB HHN SCH ×2 (11:26→21:00)
[2023-07-27] MEDS: FAMOTIDINE 20MG TABLET PO SCH (21:51)
[2023-07-28] VITALS (15 sets, daily range): BP systolic 90–169; BP diastolic 60–112; PULSE 57–111; RESP 21–49; TEMP 97.8–98.2; O2SAT 84–95
[2023-07-28] MEDS: IPRATROPIUM/ALBUTEROL 0.5-3(2.5)MG/3ML NEB HHN SCH ×5 (04:00→21:01)
[2023-07-28] MEDS: NYSTATIN 100,000 UNITS/ML 5ML UDC SSW SCH ×2 (05:18→12:56)
[2023-07-28] MEDS: METHYLPREDNISOLONE SOD SUCC 40MG/ML (ACT-O-VIAL) IV SCH ×3 (05:18→20:47)
[2023-07-28] MEDS: BENZONATATE 100MG CAPSULE PO SCH ×3 (05:18→23:27)
[2023-07-28] MEDS: FAMOTIDINE 20MG TABLET PO SCH (20:47)
[2023-07-29] VITALS (18 sets, daily range): BP systolic 1–149; BP diastolic 56–96; PULSE 55–113; RESP 18–39; TEMP 97.5–98.2; O2SAT 88–92
[2023-07-29] MEDS: IPRATROPIUM/ALBUTEROL 0.5-3(2.5)MG/3ML NEB HHN SCH ×6 (00:24→22:04)
[2023-07-29] MEDS: BENZONATATE 100MG CAPSULE PO SCH ×3 (06:17→21:20)
[2023-07-29] MEDS: METHYLPREDNISOLONE SOD SUCC 40MG/ML (ACT-O-VIAL) IV SCH ×2 (08:29→21:20)
[2023-07-29] MEDS: FAMOTIDINE 20MG TABLET PO SCH (21:20)
[2023-07-29] MEDS: NYSTATIN 100,000 UNITS/ML 5ML UDC SSW SCH (21:54)
[2023-07-30] VITALS (16 sets, daily range): BP systolic 108–146; BP diastolic 60–99; PULSE 77–120; RESP 18–42; TEMP 97.6–99.1; O2SAT 84–99
[2023-07-30] MEDS: IPRATROPIUM/ALBUTEROL 0.5-3(2.5)MG/3ML NEB HHN SCH ×4 (00:16→20:58)
[2023-07-30] MEDS: ENOXAPARIN 40MG/0.4ML SYR SUBCUT SCH ×2 (01:06→15:21)
[2023-07-30] MEDS: NYSTATIN 100,000 UNITS/ML 5ML UDC SSW SCH ×4 (06:19→17:09)
[2023-07-30] MEDS: BENZONATATE 100MG CAPSULE PO SCH ×3 (06:19→22:00)
[2023-07-30] MEDS: METHYLPREDNISOLONE SOD SUCC 40MG/ML (ACT-O-VIAL) IV SCH ×2 (09:13→21:53)
[2023-07-30] MEDS: FAMOTIDINE 20MG TABLET PO SCH (21:52)
[2023-07-31] VITALS (14 sets, daily range): BP systolic 119–137; BP diastolic 75–96; PULSE 77–112; RESP 16–42; TEMP 98–98.8; O2SAT 93–97
[2023-07-31] MEDS: IPRATROPIUM/ALBUTEROL 0.5-3(2.5)MG/3ML NEB HHN SCH ×5 (00:22→14:43)
[2023-07-31] MEDS: NYSTATIN 100,000 UNITS/ML 5ML UDC SSW SCH ×3 (00:36→12:15)
[2023-07-31] MEDS: BENZONATATE 100MG CAPSULE PO SCH ×2 (06:00→14:00)
[2023-07-31] MEDS: METHYLPREDNISOLONE SOD SUCC 40MG/ML (ACT-O-VIAL) IV SCH (08:54)
== END 2023-07-31 17:00 | disposition home or self-care (01) | DRG 871 ==
LOC: ER 22:25 → 3WST 07-11 01:01 → EDBEDREQSVC 07-11 08:10 → 5EST 07-12 12:00
PROVIDERS: ADMIT Internal Medicine; ATTEND Internal Medicine
PROC: 5A09357 Assistance with Respiratory Ventilation, Less than 24 Consecutive Hours, Continuous Positive Airway Pressure (ICD-10-PCS; 2023-07-10)
PROC: 5A0935A Assistance with Respiratory Ventilation, Less than 24 Consecutive Hours, High Flow/Velocity Cannula (ICD-10-PCS; 2023-07-12)
PROC: 5A09457 Assistance with Respiratory Ventilation, 24-96 Consecutive Hours, Continuous Positive Airway Pressure (ICD-10-PCS; 2023-07-12)
PROC: 5A09357 Assistance with Respiratory Ventilation, Less than 24 Consecutive Hours, Continuous Positive Airway Pressure (ICD-10-PCS; principal; 2023-07-14)
PROC: 5A0935A Assistance with Respiratory Ventilation, Less than 24 Consecutive Hours, High Flow/Velocity Cannula (ICD-10-PCS; 2023-07-14)
PROC: 5A0935A Assistance with Respiratory Ventilation, Less than 24 Consecutive Hours, High Flow/Velocity Cannula (ICD-10-PCS; 2023-07-15)
PROC: 5A09357 Assistance with Respiratory Ventilation, Less than 24 Consecutive Hours, Continuous Positive Airway Pressure (ICD-10-PCS; 2023-07-15)
PROC: 5A0935A Assistance with Respiratory Ventilation, Less than 24 Consecutive Hours, High Flow/Velocity Cannula (ICD-10-PCS; 2023-07-16)
PROC: 5A09357 Assistance with Respiratory Ventilation, Less than 24 Consecutive Hours, Continuous Positive Airway Pressure (ICD-10-PCS; 2023-07-17)
PROC: 5A0955A Assistance with Respiratory Ventilation, Greater than 96 Consecutive Hours, High Flow/Velocity Cannula (ICD-10-PCS; 2023-07-17)
PROC: 5A0935A Assistance with Respiratory Ventilation, Less than 24 Consecutive Hours, High Flow/Velocity Cannula (ICD-10-PCS; 2023-07-22)
PROC: 5A0955A Assistance with Respiratory Ventilation, Greater than 96 Consecutive Hours, High Flow/Velocity Cannula (ICD-10-PCS; 2023-07-23)
PROC: 5A0935A Assistance with Respiratory Ventilation, Less than 24 Consecutive Hours, High Flow/Velocity Cannula (ICD-10-PCS; 2023-07-28)
DX: A41.9 Sepsis, unspecified organism (principal); J18.9 Pneumonia, unspecified organism; J96.01 Acute respiratory failure with hypoxia; J44.0 Chronic obstructive pulmonary disease with (acute) lower respiratory infection; E87.4 Mixed disorder of acid-base balance; I27.21 Secondary pulmonary arterial hypertension; J84.10 Pulmonary fibrosis, unspecified; B37.9 Candidiasis, unspecified; R00.1 Bradycardia, unspecified; R79.89 Other specified abnormal findings of blood chemistry; R65.20 Severe sepsis without septic shock; Z79.624 Long term (current) use of inhibitors of nucleotide synthesis; Z79.899 Other long term (current) drug therapy
CPT/HCPCS: 36415; 36600; 71045; 71275; 80048; 80053; 80061; 80202; 80305; 80320; 81003; 82330; 82375; 82805; 83036; 83605; 83735; 83880; 84145; 84439; 84443; 84484; 85025; 85379; 86480; 86635; 86705; 87305; 87340; 87426; 87804; 87899; 93005; 93306; 93970; 94618; 94640; 94660; 94664; 99291; J0456; J0713; J1650; J1940; J1956; J2543; J2920; J2930; J3370; J7030; J7042; J7060; J7512; J7517; J7608; J7626; Q9967; G0480